=== PATIENT | male | born 1980 | race Caucasian/White ===

== ENCOUNTER 2020-01-06 02:06 | Emergency (ER) | payer OTHER ==
[~2020-01-06] VITALS: Ht 175.2 cm; Wt 65.3 kg
[2020-01-06] MEDS ORDERED: KETOROLAC 60 MG/2 ML VIAL IM ONE (02:15)
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
[2020-01-06] MEDS ORDERED: NAPR-1071 PO (02:48)
[2020-01-06 02:51] VITALS: BP 136/84
--- NOTE | 2020-01-06 06:17 | Diagnostic Imaging Report ---
INDICATION: Pain. FINDINGS: Heart size is normal. Lungs are clear. There is no pleural effusion or pneumothorax. Mediastinum is unremarkable. There are no displaced rib fractures. IMPRESSION: No acute cardiopulmonary abnormality No displaced rib fractures Dictated by: Dictated on workstation # [id number]
== END 2020-01-06 02:51 ==
LOC: ER FS 02:11
DX: S30.810A Abrasion of lower back and pelvis, initial encounter (principal); S20.311A Abrasion of right front wall of thorax, initial encounter; S20.312A Abrasion of left front wall of thorax, initial encounter; S40.811A Abrasion of right upper arm, initial encounter; R40.2142 Coma scale, eyes open, spontaneous, at arrival to emergency department; R40.2252 Coma scale, best verbal response, oriented, at arrival to emergency department; R40.2362 Coma scale, best motor response, obeys commands, at arrival to emergency department; F17.210 Nicotine dependence, cigarettes, uncomplicated; Y04.8XXA Assault by other bodily force, initial encounter; Y92.149 Unspecified place in prison as the place of occurrence of the external cause
CPT/HCPCS: 71101; 96372

== ENCOUNTER → 2020-07-02 | Outpatient (CLI) | payer OTHER ==
[~2020-07-02] MED LIST: CATHETER FLUSH 10 ML SYR IV PRN; HOLD METFORMIN - RECEIVED CONTRAST 20 ML VIAL IV SCH; IOHEXOL 350 MG/ML 100 ML (OMNIPAQUE 350) VIAL IV ONE; NAPR-1071 PO; NS 100 ML (IVPB) BAG IV ONE
[2020-07-02 09:58] LABS: WHITE BLOOD COUNT 10.8 10^3/uL (4.3-11.0)
[2020-07-02 09:59] LABS: MEAN PLATELET VOLUME 10.4 FL (7.4-10.4); RED CELL DISTRIBUTION WIDTH 15.3 % (10.0-14.5)
--- NOTE | 2020-07-02 10:30 | Diagnostic Imaging Report ---
CT ABDOMEN/PELVIS W PROCEDURE: CT abdomen and pelvis with contrast. TECHNIQUE: Multiple contiguous axial images were obtained through the abdomen and pelvis after administration of intravenous contrast. INDICATION: Abdominal pain with nausea and weakness COMPARISON: None. FINDINGS: There is a probable granulomatous nodule measuring less than 0.5 cm in diameter in the left base. There is mild heterogeneous enhancement throughout the liver parenchyma without evidence of focal hepatic lesion. No gallbladder, pancreatic, splenic or adrenal gland abnormality is seen. Kidneys are also unremarkable in appearance. There is no evidence of free fluid within the abdomen or pelvis. There is mild to moderate amount of stool throughout the colon. No localized inflammation or organized fluid collection is seen. IMPRESSION: No acute abnormality seen within the abdomen or pelvis. There is heterogeneous enhancement throughout the liver. This could be related to fatty infiltration or possible hepatitis. Laboratory correlation would be useful. Dictated by: Dictated on workstation # [id number]
[2020-07-02 10:31] LABS: BUN/CREATININE RATIO 11; CALCIUM 9.6 MG/DL (8.5-10.1); CARBON DIOXIDE 25 MMOL/L (21-32); CHLORIDE 103 MMOL/L (98-107); CREATININE SERUM 0.85 MG/DL (0.60-1.30); GFR ESTIMATED > 60; GLUCOSE 133 MG/DL (70-105); POTASSIUM 4.2 MMOL/L (3.6-5.0); SODIUM 138 MMOL/L (135-145)
[2020-07-02 10:38] LABS: ALANINE AMINOTRANSFERASE 2836 U/L (0-55); ALKALINE PHOSPHATASE 187 U/L (40-136); BILIRUBIN,TOTAL 12.8 MG/DL (0.1-1.0)
[2020-07-02 10:39] LABS: ALBUMIN 4.3 GM/DL (3.2-4.5)
[2020-07-03 01:35] LABS: HEPATITIS C ANTIBODY C Non-Reactive (Non-Reactive)
== END ==
LOC: RAD FS 09:25
PROVIDERS: ATTEND Nurse Practitioner Family
DX: R10.9 Unspecified abdominal pain (principal); R11.0 Nausea; R53.1 Weakness
CPT/HCPCS: 36415; 74177; 80053; 80074; 85027; 86301

== ENCOUNTER 2022-11-23 12:18 | Emergency (ER) | payer SELFPAY ==
[~2022-11-23 12:18] MED LIST changes: -CATHETER FLUSH 10 ML SYR IV PRN; -HOLD METFORMIN - RECEIVED CONTRAST 20 ML VIAL IV SCH; -IOHEXOL 350 MG/ML 100 ML (OMNIPAQUE 350) VIAL IV ONE; -NS 100 ML (IVPB) BAG IV ONE
[2022-11-23] MEDS ORDERED: KETOROLAC 60 MG/2 ML VIAL IM STA (12:34)
--- NOTE | 2022-11-23 12:41 | ED Upper Extremity ---
General Chief Complaint: Upper Extremity Stated Complaint: RT SHOULDER PAIN Source: patient History of Present Illness Date Seen by Provider: Nov 23, 2022 Time Seen by Provider: 12:22 Initial Comments 42-year-old male presenting with complaints of right shoulder pain. He states that he has had pain off and on over the last month and it is worse since he has been moving in the last few days. He was concerned that he may have dislocated his shoulder as he had done that when he was a teenager. He has had pain off and on since the dislocation happened almost 30 years ago. He does not have a primary care provider to follow-up with. He denies any numbness, weakness, color change to his arm, direct trauma to his arm. He had tried a makeshift sling at home and felt that it made it worse. He had tried ibuprofen 800 mg yesterday and some Tylenol overnight. He was continuing to have pain and was concerned it might be dislocated so he presented to the emergency department for evaluation. Onset: other (Pain off and on for the last month but worse in the last few days.) Severity: severe Pain/Injury Location: right shoulder Method of Injury: unknown Modifying Factors: Improves With Immobilization; Worse With Movement Allergies and Home Medications Allergies Coded Allergies: No Known Drug Allergies (Unverified , 01/06/20) Patient Home Medication List Home Medication List Reviewed: Yes Ibuprofen (Ibuprofen) 800 Mg Tablet, 800 MG PO Q8H PRN for PAIN Prescribed by: MINNIE VILLARREAL on 11/23/22 1316 Discontinued Medications Naproxen (Naprosyn) 500 Mg Tablet, 500 MG PO BID PRN for PAIN-BREAKTHROUGH Prescribed by: ADAN PATEL on 01/06/20 0248 Review of Systems Constitutional: No chills, No fever EENTM: no symptoms reported Respiratory: no symptoms reported Cardiovascular: no symptoms reported Gastrointestinal: no symptoms reported Genitourinary: no symptoms reported Musculoskeletal: see HPI Skin: No change in color, No rash Psychiatric/Neurological: Denies Numbness, Denies Paresthesia, Denies Tingling, Denies Weakness Past Nqscdmg-Bagari-Yxrmzk Hx Patient Social History Tobacco Use?: Yes Tobacco type used: Cigarettes Smoking Status: Current Everyday Smoker Substance use?: No Alcohol Use?: No Pt feels they are or have been: No Immunizations Up To Date Influenza Vaccine Up-to-Date: No; Not Current First/Initial COVID19 Vaccinat: Denies Seasonal Allergies Seasonal Allergies: No Past Medical History Surgery/Hospitalization HX: Pleurodesis; Emphysema Surgeries: Yes (Lung Surgery x2) Respiratory: Yes (Pneumothorax) Emphysema Cardiac: No Neurological: No Genitourinary: No Gastrointestinal: No Musculoskeletal: No Endocrine: No HEENT: No Cancer: No Psychosocial: No Integumentary: No Blood Disorders: No Adverse Reaction/Blood Tranf: No Physical Exam Vital Signs Vital Signs - First Documented 11/23/22 12:27 Temp 36.7 Pulse 86 Resp 16 B/P (MAP) 142/94 (110) Pulse Ox 96 O2 Delivery Room Air Capillary Refill : Height, Weight, BMI Height: 5'9.00" Weight: 130lbs. 0oz. 58.467981zp; 21.00 BMI Method:Stated General Appearance: WD/WN, no apparent distress HEENT: PERRL/EOMI, pharynx normal Cardiovascular: normal peripheral pulses, regular rate, rhythm Respiratory: chest non-tender, lungs clear, normal breath sounds, no respiratory distress, no accessory muscle use Shoulder: no evidence of injury; No asymmetry, No deformity, No ecchymosis; limited ROM (Right shoulder has limited range of motion due to pain with abduction beyond 90 degrees.), pain (Pain with palpation of the right shoulder and increased with abduction beyond 90 degrees.) Elbow/Forearm: normal inspection, non-tender, no evidence of injury, normal ROM, Bilateral Hand: normal inspection, non-tender, no evidence of injury, normal ROM, Bilateral Neurologic/Tendon: normal sensation, normal motor functions, normal tendon functions Neurologic/Psychiatric: 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-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 nml as tested, no motor/sensory deficits, alert, normal mood/affect, oriented x 3 Skin: normal color, warm/dry; No ecchymosis Progress/Results/Core Measures Results/Orders My Orders Orders - MINNIE VILLARREAL MD Shoulder 3 View Right (11/23/22 12:34) Ice: Apply To Affected Area (11/23/22 12:34) Ketorolac Injection (Toradol Injection) (11/23/22 12:34) Ed Ortho/Other Supplies Order (11/23/22 13:24) Vital Signs/I&O 1/17/23 1/17/23 12:27 13:17 Temp 36.7 36.7 Pulse 86 82 Resp 16 16 B/P (MAP) 142/94 (110) 145/87 Pulse Ox 96 98 O2 Delivery Room Air Room Air Progress Progress Note #1: Progress Note Differential diagnosis includes shoulder dislocation, acromioclavicular separation, shoulder strain, rotator cuff injury, avulsion fracture. Since the patient is able to move his shoulder a dislocation is less likely. Will obtain x-rays to evaluate for possible bony injury or separation. Ordered ice to help with pain as well as a Toradol 60 mg IM injection. Progress Note #2: Time: 12:40 Progress Note On my personal interpretation and review of his three-view films of the right shoulder he has no acute fracture or dislocation. Will continue with scheduled anti-inflammatories for pain and counseled on follow-up and return precautions. Advised that establish care with a primary care provider and may need physical therapy or orthopedic referral if pain continues. One of the next steps might be an MRI to look for rotator cuff or soft tissue injury. Will prescribe Ibuprofen 800 mg every 8 hours and may take over the counter acetaminophen for additional pain control. Ice 20-30 minutes every few hours as needed for inflammation and pain. Progress Note #3: Time: 12:56 Progress Note I reviewed the radiologist report that showed no acute process in the shoulder. We will proceed with plan as outlined above as he has no emergent condition requiring admit or emergent referral to Orthopedics. Diagnostic Imaging Diagonstic Imaging: Xray Plain Films/CT/US/NM/MRI: other (right shoulder) Comments [facility] [place], [place] NAME: LILIANE FINCH [facility] REC#: [id number] PT STATUS: REG ER : 1980 PHYSICIAN: MINNIE VILLARREAL MD ADMIT DATE: 11/23/22/ER FS Draft Date of Exam:11/23/22 SHOULDER 3 VIEW RIGHT Clinical indications: Patient with right shoulder pain x1 month. Patient thinks he dislocated shoulder. EXAM: X-ray of right shoulder, 3 views. Comparisons: None. FINDINGS: There is no acute fracture or dislocation. There is no significant bone or joint abnormality. Right acromioclavicular joint is within normal limits. IMPRESSION: Unremarkable x-ray of the right shoulder. Dictated on workstation # [id number] Dict: 11/23/22 1250 Trans: 11/23/22 1254 [facility] [id number] Interpreted by: CHUCKY LEVI MD Electronically signed by: Reviewed: Reviewed by Me Departure Impression Primary Impression: Right shoulder pain Qualified Codes: M25.511 - Pain in right shoulder Additional Impression: Strain of other muscles, fascia and tendons at shoulder and upper arm level, right arm, initial encounter Disposition: HOME, SELF-CARE Condition: Stable Departure-Patient Inst. Decision time for Depature: 13:02 Referrals: NO,LOCAL PHYSICIAN (PCP) Primary Care Physician [facility] [place] Patient Instructions: Shoulder Pain ED, Muscle Strain ED, Using Cold for Pain Add. Discharge Instructions: Use the Ibuprofen every 8 hours to help with pain and inflammation. Take with food to help limit irritation to your stomach. May also take acetaminophen 650 mg every 6 hours as needed for pain. Ice 20-30 minutes every few hours as needed for inflammation and pain. Call [facility] clinic at [phone] to see about establishing care with primary care provider. You might need physical therapy or MRI or orthopedics referral for further evaluation of the shoulder. Try to limit activity for next 2-3 days with the shoulder to avoid causing increased strain and pain All discharge instructions reviewed with patient and/or family. Voiced understanding. Scripts Ibuprofen (Ibuprofen) 800 Mg Tablet 800 MG PO Q8H PRN for PAIN for 10 Days, #30 TAB 0 Refills Prov: MINNIE VILLARREAL MD 11/23/22 MINNIE VILLARREAL MD Nov 23, 2022 12:41
--- NOTE | 2022-11-23 12:54 | Diagnostic Imaging Report ---
Clinical indications: Patient with right shoulder pain x1 month. Patient thinks he dislocated shoulder. EXAM: X-ray of right shoulder, 3 views. Comparisons: None. FINDINGS: There is no acute fracture or dislocation. There is no significant bone or joint abnormality. Right acromioclavicular joint is within normal limits. IMPRESSION: Unremarkable x-ray of the right shoulder. Dictated by: Dictated on workstation # [id number]
[2022-11-23] MEDS ORDERED: IBUP-1780 PO (13:16)
[2022-11-23 13:17] VITALS: BP 145/87
== END 2022-11-23 13:17 | disposition home or self-care (01) ==
LOC: EDUNIT# 12:18 → ER FS 12:20
DX: S46.911A Strain of unspecified muscle, fascia and tendon at shoulder and upper arm level, right arm, initial encounter (principal); F17.210 Nicotine dependence, cigarettes, uncomplicated; Z28.310 Unvaccinated for COVID-19; X58.XXXA Exposure to other specified factors, initial encounter
CPT/HCPCS: 73030

== ENCOUNTER 2023-10-18 09:04 | Emergency (ER) | payer SELFPAY ==
[~2023-10-18] VITALS: Ht 175 cm; Wt 67.0 kg
[~2023-10-18 09:04] MED LIST changes: +IBUP-1780 PO
--- NOTE | 2023-10-18 09:28 | ED Abdominal Pain ---
General Chief Complaint: Abdominal/GI Problems Stated Complaint: ABD PAIN; NAUSEA History of Present Illness Date Seen by Provider: Oct 18, 2023 Time Seen by Provider: 09:15 Initial Comments 43-year-old male is here with complaints of right lower quadrant pain which has been going on for the past couple of days. Patient was sent here from the clinic to rule out appendicitis. Patient has intermittent nausea and vomiting but none at this time in the ER. Denies diarrhea, fever or chills, chest pain, diaphoresis. Allergies and Home Medications Allergies Coded Allergies: No Known Drug Allergies (Unverified , 01/06/20) Patient Home Medication List Home Medication List Reviewed: Yes Ibuprofen (Ibuprofen) 800 Mg Tablet, 800 MG PO Q8H PRN for PAIN Prescribed by: MINNIE VILLARREAL on 11/23/22 1316 Review of Systems Review of Systems Constitutional: no symptoms reported EENTM: No Symptoms Reported Respiratory: No Symptoms Reported Cardiovascular: No Symptoms Reported Gastrointestinal: Abdominal Pain Genitourinary: No Symptoms Reported Musculoskeletal: no symptoms reported Past Sfqwddn-Uufjxq-Ohxqrl Hx Immunizations Up To Date First/Initial COVID19 Vaccinat: Denies Seasonal Allergies Seasonal Allergies: No Past Medical History Surgery/Hospitalization HX: Pleurodesis; Emphysema Surgeries: Yes (Lung Surgery x2) Respiratory: Yes (Pneumothorax) Emphysema Cardiac: No Neurological: No Genitourinary: No Gastrointestinal: No Musculoskeletal: No Endocrine: No HEENT: No Cancer: No Psychosocial: No Integumentary: No Blood Disorders: No Adverse Reaction/Blood Tranf: No Physical Exam Vital Signs Vital Signs - First Documented 10/18/23 09:30 Temp 35.6 Pulse 66 B/P (MAP) 106/86 (93) Pulse Ox 100 O2 Delivery Room Air Capillary Refill : Height/Weight/BMI Height: 5'9.00" Weight: 130lbs. 0oz. 58.441933gt; 21.00 BMI Method:Stated General Appearance: mild distress HEENT: PERRL/EOMI Neck: non-tender, full range of motion Respiratory: chest non-tender, lungs clear, normal breath sounds Cardiovascular: regular rate, rhythm Gastrointestinal: normal bowel sounds, soft, tenderness (Tenderness present in the right lower quadrant) Extremities: normal range of motion Back: no CVA tenderness Neurologic/Psychiatric: alert, oriented x 3 Skin: normal color Focused Exam Lactate Level 10/18/23 09:17: Lactic Acid Level 1.28 Lactic Acid Level Laboratory Tests Test 10/18/23 09:17 Lactic Acid Level 1.28 MMOL/L (0.50-2.00) Progress/Results/Core Measures Results/Orders Lab Results Laboratory Tests Test 10/18/23 09:17 10/18/23 10:33 Range/Units White Blood Count 10.7 4.3-11.0 10^3/uL Red Blood Count 4.89 4.30-5.52 10^6/uL Hemoglobin 14.4 13.3-17.7 g/dL Hematocrit 42 40-54 % Mean Corpuscular Volume 86 80-99 fL Mean Corpuscular Hemoglobin 29 25-34 pg Mean Corpuscular Hemoglobin Concent 34 32-36 g/dL Red Cell Distribution Width 13.1 10.0-14.5 % Platelet Count 355 130-400 10^3/uL Mean Platelet Volume 9.9 9.0-12.2 fL Immature Granulocyte % (Auto) 0 % Neutrophils (%) (Auto) 69 42-75 % Lymphocytes (%) (Auto) 23 12-44 % Monocytes (%) (Auto) 7 0-12 % Eosinophils (%) (Auto) 1 0-10 % Basophils (%) (Auto) 1 0-10 % Neutrophils # (Auto) 7.3 1.8-7.8 10^3/uL Lymphocytes # (Auto) 2.4 1.0-4.0 10^3/uL Monocytes # (Auto) 0.7 0.0-1.0 10^3/uL Eosinophils # (Auto) 0.1 0.0-0.3 10^3/uL Basophils # (Auto) 0.1 0.0-0.1 10^3/uL Immature Granulocyte # (Auto) 0.0 0.0-0.1 10^3/uL Sodium Level 138 135-145 MMOL/L Potassium Level 4.0 3.6-5.0 MMOL/L Chloride Level 103 98-107 MMOL/L Carbon Dioxide Level 23 21-32 MMOL/L Anion Gap 12 5-14 MMOL/L Blood Urea Nitrogen 12 7-18 MG/DL Creatinine 1.11 0.60-1.30 MG/DL Estimat Glomerular Filtration Rate 83 BUN/Creatinine Ratio 11 Glucose Level 116 H 70-105 MG/DL Lactic Acid Level 1.28 0.50-2.00 MMOL/L Calcium Level 9.7 8.5-10.1 MG/DL Corrected Calcium 8.5-10.1 MG/DL Magnesium Level 2.1 1.6-2.4 MG/DL Total Bilirubin 0.5 0.1-1.0 MG/DL Aspartate Amino Transf (AST/SGOT) 15 5-34 U/L Alanine Aminotransferase (ALT/SGPT) 12 0-55 U/L Alkaline Phosphatase 93 40-136 U/L Total Protein 7.6 6.4-8.2 GM/DL Albumin 4.7 H 3.2-4.5 GM/DL Lipase 65 8-78 U/L Urine Color DARK YELLOW Urine Clarity CLEAR Urine pH 6.0 5-9 Urine Specific [place] >=1.030 1.016-1.022 Urine Protein NEGATIVE NEGATIVE Urine Glucose (UA) NEGATIVE NEGATIVE Urine Ketones NEGATIVE NEGATIVE Urine Nitrite NEGATIVE NEGATIVE Urine Bilirubin NEGATIVE NEGATIVE Urine Urobilinogen 0.2 < = 1.0 MG/DL Urine Leukocyte Esterase NEGATIVE NEGATIVE Urine RBC (Auto) NEGATIVE NEGATIVE Urine RBC NONE /HPF Urine WBC 5-10 H /HPF Urine Squamous Epithelial Cells RARE /HPF Urine Crystals NONE /LPF Urine Bacteria NEGATIVE /HPF Urine Casts NONE /LPF Urine Mucus LARGE H /LPF Urine Culture Indicated NO Urine Opiates Screen NEGATIVE NEGATIVE Urine Oxycodone Screen NEGATIVE NEGATIVE Urine Methadone Screen NEGATIVE NEGATIVE Urine Barbiturates Screen NEGATIVE NEGATIVE Ur Tricyclic Antidepressants Screen NEGATIVE NEGATIVE Urine Phencyclidine Screen NEGATIVE NEGATIVE Urine Amphetamines Screen POSITIVE H NEGATIVE Urine Methamphetamines Screen POSITIVE H NEGATIVE Urine Benzodiazepines Screen NEGATIVE NEGATIVE Urine Cocaine Screen NEGATIVE NEGATIVE Urine Cannabinoids Screen NEGATIVE NEGATIVE My Orders Orders - DEMETRIA POTTER MD Cbc And Automated Diff (10/18/23 09:28) Comprehensive Metabolic Panel (10/18/23 09:28) Drug Screen Stat (Urine) (10/18/23 09:28) Lactic Acid Analyzer (10/18/23:28) Lipase (10/18/23:28) Magnesium (10/18/23 09:28) Ua Culture If Indicated (10/18/23:28) Ct Abd/Pelv W (Appendicitis) (10/18/23 09:28) Nothing By Mouth (10/18/23 Lunch) Ketorolac Injection (Ketorolac Injection (10/18/23 09:30) Ed Iv/Invasive Line Start (10/18/23 09:29) Ns Iv 1000 Ml (Ns Iv 1000 Ml) (10/18/23 09:29) Iohexol Injection (Omnipaque 350 Mg/Ml 1 (10/18/23 09:45) Received Contrast (Hold Metformin- Contr (10/18/23 09:45) Ns (Ivpb) 100 Ml (Sodium Chloride 0.9% 1 (10/18/23 09:45) Medications Given in ED Current Medications Medications Dose Ordered Sig/Michael Route Start Time Stop Time Status Last Admin Dose Admin Iohexol 100 ml ONCE ONCE IV 10/18/23 09:45 10/18/23 09:46 DC 10/18/23 10:13 75 ML Ketorolac Tromethamine 15 mg ONCE ONCE IVP 10/18/23 09:30 10/18/23 09:31 DC 10/18/23 09:37 15 MG Sodium Chloride 100 ml ONCE ONCE IV 10/18/23 09:45 10/18/23 09:46 DC 10/18/23 10:13 80 ML Vital Signs/I&O 10/18/23 09:30 Temp 35.6 Pulse 66 B/P (MAP) 106/86 (93) Pulse Ox 100 O2 Delivery Room Air Progress Progress Note : Progress Note 1. METHAMPHETAMINE ABUSE CAUSING ABDOMINAL PAIN - CT ABD/ PELVIS: No acute findings - CBC/ CMP: unremarkable with normal WBC - Lipase: negative - Lactic acid: negative - UA/ UDS: negative for infection, positive for methamphetamines - NS IVF/ Toradol iv given in the ER - Advised to stop using methamphetamines or any other illicit drugs. - Adequate hydration and bland foods advised - Follow up with PCP within 1 week -The patient was seen in the ED, and treated appropriately to presentation at a specific point in time. Patient is informed that there is a possibility that disease and illness can evolve and change in acuity rapidly or slowly after patient is discharged from the ER. Precautionary advice given to the patient for immediate return to ER if symptoms worsen or do not resolve, and to seek emergency care sooner rather than later. Pt also advised on the importance of PCP follow up and compliance with management and follow up plan with PCP and/or specialist, as this is part of the management plan. Pt verbally expressed understanding. Diagnostic Imaging Diagonstic Imaging: CT Plain Films/CT/US/NM/MRI: abdomen Comments [facility]. [place], [place] NAME: LILIANE FINCH [facility] REC#: [id number] PT STATUS: REG ER : 1980 PHYSICIAN: DEMETRIA POTTER MD ADMIT DATE: 10/18/23/ER FS Draft Date of Exam:10/18/23 CT ABD/PELV W (APPENDICITIS) PROCEDURE: CT abdomen and pelvis with contrast, rule out appendicitis. TECHNIQUE: Multiple contiguous axial images were obtained through the abdomen and pelvis after the administration of intravenous contrast. All CT scans use one or more of the following dose optimizing techniques: automated exposure control, MA and/or KvP adjustment based on patient size and exam type or iterative reconstruction. INDICATION: Right lower quadrant abdominal pain. Nausea. COMPARISON: CT abdomen and pelvis with IV contrast 07/02/2020. FINDINGS: Calcified granuloma in the left lung base. The liver, gallbladder, pancreas, spleen, adrenals, kidneys, collecting systems, bladder and appendix are negative. No free intraperitoneal air or fluid. No lymphadenopathy. No evidence of bowel obstruction. No acute osseous findings. IMPRESSION: No acute CT findings in the abdomen or pelvis. Specifically, normal appendix. Dictated on workstation # [id number] Dict: 10/18/23 1020 Trans: 10/18/23 1028 [facility] [id number] Interpreted by: AGNES GILES MD Electronically signed by: Departure Impression Primary Impression: Methamphetamine abuse Disposition: 01 HOME, SELF-CARE Condition: Improved Departure-Patient Inst. Referrals: NO,LOCAL PHYSICIAN (PCP/Family) Primary Care Physician Patient Instructions: Meth Mouth, Drug Misuse and Addiction (DC) Add. Discharge Instructions: - Advised to stop using methamphetamines or any other illicit drugs. - Adequate hydration and bland foods advised - Follow up with PCP within 1 week All discharge instructions reviewed with patient and/or family. Voiced understanding. DEMETRIA POTTER MD Oct 18, 2023 09:28
[2023-10-18] MEDS ORDERED: NS IV 1000 ML 1,000 ML IV STA (09:29)
[2023-10-18 09:30] VITALS: BP 106/86
[2023-10-18] MEDS ORDERED: KETOROLAC INJ 15 MG/ML VIAL IVP ONE (09:30)
[2023-10-18 09:35] LABS: BASOPHILS # (AUTO) 0.1 10^3/uL (0.0-0.1); BASOPHILS % (AUTO) 1 % (0-10); EOSINOPHILS # (AUTO) 0.1 10^3/uL (0.0-0.3); EOSINOPHILS % (AUTO) 1 % (0-10); HEMATOCRIT 42 % (40-54); HEMOGLOBIN 14.4 g/dL (13.3-17.7); LYMPHOCYTES # (AUTO) 2.4 10^3/uL (1.0-4.0); LYMPHOCYTES % (AUTO) 23 % (12-44); MEAN CORPUSCULAR HEMOGLOBIN 29 pg (25-34); MEAN CORPUSCULAR HGB CONC 34 g/dL (32-36); MEAN CORPUSCULAR VOLUME 86 fL (80-99); MEAN PLATELET VOLUME 9.9 fL (9.0-12.2); MONOCYTES # (AUTO) 0.7 10^3/uL (0.0-1.0); MONOCYTES % (AUTO) 7 % (0-12); NEUTROPHILS # (AUTO) 7.3 10^3/uL (1.8-7.8); NEUTROPHILS % (AUTO) 69 % (42-75); PLATELET COUNT 355 10^3/uL (130-400); WHITE BLOOD COUNT 10.7 10^3/uL (4.3-11.0)
[2023-10-18] MEDS ORDERED: IOHEXOL 350 MG/ML 100 ML (OMNIPAQUE 350) VIAL IV ONE (09:45)
[2023-10-18] MEDS ORDERED: NS 100 ML (IVPB) BAG IV ONE (09:45)
[2023-10-18] MEDS ORDERED: HOLD METFORMIN - RECEIVED CONTRAST 20 ML VIAL IV SCH (09:45)
[2023-10-18 09:53] LABS: ALANINE AMINOTRANSFERASE 12 U/L (0-55); ALBUMIN 4.7 GM/DL (3.2-4.5); ALKALINE PHOSPHATASE 93 U/L (40-136); BILIRUBIN,TOTAL 0.5 MG/DL (0.1-1.0); BUN/CREATININE RATIO 11; CALCIUM 9.7 MG/DL (8.5-10.1); CARBON DIOXIDE 23 MMOL/L (21-32); CHLORIDE 103 MMOL/L (98-107); CREATININE SERUM 1.11 MG/DL (0.60-1.30); GFR ESTIMATED 83; GLUCOSE 116 MG/DL (70-105); LIPASE 65 U/L (8-78); MAGNESIUM 2.1 MG/DL (1.6-2.4); SODIUM 138 MMOL/L (135-145); TOTAL PROTEIN 7.6 GM/DL (6.4-8.2)
--- NOTE | 2023-10-18 10:28 | Diagnostic Imaging Report ---
PROCEDURE: CT abdomen and pelvis with contrast, rule out appendicitis. TECHNIQUE: Multiple contiguous axial images were obtained through the abdomen and pelvis after the administration of intravenous contrast. All CT scans use one or more of the following dose optimizing techniques: automated exposure control, MA and/or KvP adjustment based on patient size and exam type or iterative reconstruction. INDICATION: Right lower quadrant abdominal pain. Nausea. COMPARISON: CT abdomen and pelvis with IV contrast 07/02/2020. FINDINGS: Calcified granuloma in the left lung base. The liver, gallbladder, pancreas, spleen, adrenals, kidneys, collecting systems, bladder and appendix are negative. No free intraperitoneal air or fluid. No lymphadenopathy. No evidence of bowel obstruction. No acute osseous findings. IMPRESSION: No acute CT findings in the abdomen or pelvis. Specifically, normal appendix. Dictated by: Dictated on workstation # [id number]
[2023-10-18 10:39] LABS: BILIRUBIN,URINE NEGATIVE (NEGATIVE); CLARITY,URINE CLEAR; GLUCOSE, URINE (UA) NEGATIVE (NEGATIVE); KETONES,URINE NEGATIVE (NEGATIVE); LEUKOCYTE ESTERASE ,URINE NEGATIVE (NEGATIVE); NITRITE,URINE NEGATIVE (NEGATIVE); PROTEIN,URINE NEGATIVE (NEGATIVE)
[2023-10-18 10:54] LABS: BACTERIA,URINE NEGATIVE /HPF; SQUAMOUS EPITHELIAL CELL,UR RARE /HPF
[2023-10-18 10:55] LABS: COLOR,URINE DARK YELLOW
[2023-10-18 10:56] LABS: AMPHETAMINE SCREEN, URINE POSITIVE (NEGATIVE); BARBITURATE SCREEN URINE NEGATIVE (NEGATIVE); CANNABINOID SCREEN, URINE NEGATIVE (NEGATIVE); COCAINE SCREEN URINE NEGATIVE (NEGATIVE); METHADONE STAT NEGATIVE (NEGATIVE); OPIATE SCREEN URINE NEGATIVE (NEGATIVE); OXYCODONE STAT NEGATIVE (NEGATIVE); TRICYCLIC ANTIDEPRESSANTS SCRE NEGATIVE (NEGATIVE)
== END 2023-10-18 12:20 | disposition home or self-care (01) ==
LOC: EDUNIT# 09:04 → ER FS 09:06
DX: F15.10 Other stimulant abuse, uncomplicated (principal); R10.31 Right lower quadrant pain
CPT/HCPCS: 36415; 74177; 80053; 80306; 81000; 83605; 83690; 83735; 85025; Q9967